=== PATIENT | female | born 1990 | race American Indian/Alaskan Native ===

== ENCOUNTER 2018-03-20 14:51 | Emergency (ER) | payer OTHER, MEDICAID, SELFPAY ==
[2018-03-20 15:13] VITALS: BP 117/68; PULSE 106; RESP 20; TEMP 37.1; O2SAT 98; BMI 24.4
[2018-03-20 16:04] LABS: Urine Amphetamines Negative (Negative); Urine Barbiturates Negative (Negative); Urine Benzodiazepines Positive (Negative); Urine Cocaine Negative (Negative); Urine MDMA Negative (Negative); Urine Methadone Negative (Negative); Urine Methamphetamines Negative (Negative); Urine Morphine/Opi cutoff 2000 Negative (Negative); Urine Oxycodone Negative (Negative); Urine Phencyclidine Negative (Negative); Urine Tetrahydrocannabinol Positive (Negative); Urine Tricyclic Antidepressant Negative (Negative)
[2018-03-20 16:07] LABS: Add Manual Diff / Slide Review NO; Basophils Percent Auto 0.2 % (0-2); Eosinophils Percent Auto 0.4 % (2-4); Hematocrit 42.3 % (36-46); Hemoglobin 14.6 g/dL (12.0-16.0); Lymphocytes Percent Auto 14.1 % (25-40); Mean Corpuscular HGB Conc 34.6 % (30-36); Mean Corpuscular Hemoglobin 32.6 PG (26-34); Mean Corpuscular Volume 94.4 fL (80-100); Monocytes Percent Auto 3.8 % (3-14); Neutrophils Absolute Auto 9000 /uL (3000-5900); Neutrophils Percent Auto 81.5 % (50-75); Platelet Count 364 X10^3/uL (150-400); Red Blood Cell Count 4.48 X10^6/uL (4.0-5.2); Red Cell Distribution Width 12.9 % (11.6-14.8)
--- NOTE | 2018-03-20 16:08 | PC.NURSE ---
Informed pt of policy to change out of clothes and into paper scrubs. All clothing removed except for underpants. Pt is very cooperative and willing to do what it takes to get help. Pt fiance at bedside and phone at bedside. Pt denies plan for suicide at this time. Agrees to remain safe while in our care. Spoke with both pt and significant other regarding plan of care.
[2018-03-20 16:17] LABS: Alanine Aminotransferase 33 IU/L (9-52); Albumin 4.5 g/dL (3.5-5.0); Albumin Globulin Ratio 1.6 (1.0-2.8); Alkaline Phosphatase 55 U/L (38-126); Aspartate Aminotransferase 44 IU/L (14-36); BUN Creatinine Ratio 18.3 (6-22); Bilirubin Total 0.3 mg/dL (0.2-1.3); Blood Urea Nitrogen 11 mg/dL (7-17); Calcium 8.6 mg/dL (8.4-10.2); Carbon Dioxide 28 mmol/L (22-32); Chloride 104 mmol/L (98-107); Estimated Glomerular Filt Rate > 60.0 mL/min (>60); Ethanol (ETOH) 287 mg/dL; Globulin 2.8 g/dL (1.7-4.1); Glucose 117 mg/dL (70-100); HEMOLYSIS < 15 (0-50); Potassium 3.9 mmol/L (3.4-5.1); Sodium 145 mmol/L (137-145); Total Protein 7.3 g/dL (6.3-8.2)
[2018-03-20 17:01] LABS: Thyroid Stimulating Hormone 0.69 uIU/mL (0.47-4.68)
[2018-03-20 17:27] LABS: RBC Urine None Seen (0-5/HPF)
[2018-03-20 17:33] LABS: Appearance Urine UA CLEAR; Bilirubin Urine UA NEGATIVE (NEGATIVE); Color Urine UA YELLOW; Glucose Urine UA NEGATIVE (Normal); Ketones Urine UA NEGATIVE (NEGATIVE); Leukocyte Esterase Urine UA 2+ (NEGATIVE); Nitrite Urine UA Negative (Negative); Occult Blood Urine UA NEGATIVE (Negative); Protein Urine UA NEGATIVE (Negative); Urobilinogen Urine UA 0.2 E.U./dL (0.2)
[2018-03-20 17:38] LABS: Bacteria Urine Occasional (0-1); Culture Indicated Urine Specimen Cultured; WBC Urine 5-10/HPF (0-5/HPF)
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
[2018-03-20 17:49] LABS: Acetaminophen < 10 ug/mL (10-30)
[2018-03-20 17:50] LABS: Salicylate < 1.0 mg/dL (<20)
[2018-03-20 17:53] LABS: Pregnancy Test Serum,Qual Negative (Negative)
[2018-03-20 20:04] VITALS: BP 103/69; PULSE 104; RESP 17; TEMP 37; O2SAT 97
== END 2018-03-20 20:24 | disposition home or self-care (01) ==
PROVIDERS: Emergency Medicine; Emergency Provider Emergency Medicine
DX: R45.851 Suicidal ideations (principal)
CPT/HCPCS: 36415; 80053; 80305; 80320; 80329; 81001; 82962; 84443; 84703; 85025; 87086; 87186; 99283; 99285; G0480

== ENCOUNTER 2018-03-28 19:00 | Emergency (ER) | payer OTHER, MEDICAID, SELFPAY ==
[2018-03-28 19:22] VITALS: BP 114/71; PULSE 109; RESP 18; TEMP 36.9; O2SAT 97; BMI 25.2
--- NOTE | 2018-03-28 20:56 | ED_ITS ---
HPI - Psych General Chief Complaint: Psychiatric Symptoms Stated Complaint: BEHAVIORAL EVAL Time Seen by Provider: 03/28/18 20:07 Source: patient Mode of arrival: ambulatory Limitations: other (intoxicated; silvia' gives some history.) History of Present Illness HPI Narrative: Patient was brought in by fiance and friend for alcohol intoxication, with hope of being sent to a detox facility. Patient states she is not feeling depressed or suicidal, but is tired of drinking. She states however, that she only wants to go to detox if she can go with her friend. The friend, silvia, and patient state that they have called a facility down to quell a, and has been told there are beds. MD complaint: other (Alcohol abuse and intoxication) Onset (ago): year(s) Duration: constant History of same: Yes Relieving factors: none Exacerbating factors: other (Anxiety, depression, PTSD) Context: recent alcohol abuse Associated psychiatric symptoms: depression (Patient has a history of depression , but is not suicidal.) Associated symptoms: denies other symptoms Treatments prior to arrival: none Related Data Home Medications Medication Instructions Recorded Confirmed cetirizine 10 mg PO DAILY PRN 03/20/18 03/20/18 clindamycin phosphate 1 applic TOPICAL DIRECTED 03/20/18 03/20/18 escitalopram oxalate 10 mg PO DAILY 03/20/18 03/20/18 halobetasol propionate 1 applic TOPICAL DIRECTED 03/20/18 03/20/18 hydroxyzine pamoate 25 mg PO QID 03/20/18 03/20/18 Allergies Allergy/AdvReac Type Severity Reaction Status Date / Time No Known Drug Allergies Allergy Verified 03/28/18 19:26 Review of Systems Review of Systems All systems reviewed & are unremarkable except as noted in HPI and below Constitutional Denies chills, Denies fever(s), Denies lethargy and Denies weakness Eyes Denies change in vision, Denies eye discharge, Denies irritation and Denies loss of vision Cardiovascular Denies chest pain, Denies irregular heart rhythm, Denies lightheadedness, Denies palpitations, Denies dyspnea, Denies dyspnea on exertion and Denies orthopnea Respiratory Denies cough, Denies dyspnea, Denies dyspnea on exertion and Denies wheezing Gastrointestinal Gastrointestinal: Denies abdominal pain, Denies change in bowel habits, Denies diarrhea, Denies nausea and Denies vomiting Genitourinary Denies hematuria, Denies flank pain, Denies urinary incontinence and Denies urinary urgency Musculoskeletal Denies back pain, Denies muscle weakness, Denies numbness and Denies tingling Integumentary/Breasts Denies pruritus, Denies erythema, Denies rash and Denies wounds Neurologic Denies confusion, Denies loss of vision, Denies numbness, Denies tingling and Denies weakness Psychiatric Denies anxiety, Denies confusion, Denies depression, Denies homicidal ideation and Denies suicidal ideation Endocrine Denies palpitations Hematologic/Lymphatic Denies easy bruising Allergic/Immunologic Denies wheezing [facility] Medical History Depression (Acute) Surgical History No pertinent past surgical history (Acute) Social History Smoking Status: Current every day smoker Exam Initial Vital Signs Initial Vital Signs: Vital Signs Temperature 98.4 F 03/28/18 19:22 Pulse Rate 109 H 03/28/18 19:22 Respiratory Rate 18 03/28/18 19:22 Blood Pressure 114/71 03/28/18 19:22 Pulse Oximetry 97 03/28/18 19:22 Const General: cooperative and well developed Nutritional Appearance: well nourished Orientation: alert, awake, oriented x3 and not confused Other: Patient smells mildly of alcohol and appears slightly intoxicated but is able to easily answer questions on her own. [facility] Head: normocephalic and atraumatic Ears: external ears normal Nose: external nose normal and No nasal discharge Face and sinus: no sinus tenderness and No dry mucous membranes Mouth: oral mucosae normal and moist mucous membranes Eyes General: appearance normal, both eyes and all related structures Eyelids: eyelids normal Conjunctivae: conjunctivae normal Sclera: sclerae normal Pupils: PERRL EOM: EOM intact bilaterally Neck Neck: normal visual inspection, trachea midline, No lymphadenopathy and No midline deformity Lymphatic: No lymphedema Chest Chest: normal inspection of the chest Resp Effort & Inspection: normal respiratory effort, able to speak in complete sentences, no respiratory distress and no use of accessory muscles Auscultation: clear to auscultation bilaterally, no rales, no rhonchi and no wheezes Cardio Rate: regular rate Rhythm: regular rhythm Heart Sounds: no click, no gallops, no murmurs and no rubs Pulses: normal peripheral pulses GI Inspection: non-distended Palpation: soft, no hepatosplenomegaly, No guarding, No pulsatile mass and No tender Auscultation: normal bowel sounds Back/Spine/Pelvis Back: No CVA tenderness Cervical Spine: cervical ROM normal and No pain with cervical ROM Thoracic/Lumbar Spine: thoracic and lumbar spine normal to inspection Skin General: no rashes or lesions noted, No jaundice and No petechiae Neuro General: alert, oriented x3, gait normal and no focal motor deficits Speech: speech normal Extrem General: full ROM, no clubbing, cyanosis or edema, no pedal edema and no calf tenderness Psych Appearance: well kempt Mental Status: mental status grossly normal Attitude: cooperative Thought Content: normal and suicidality Judgment: judgment good Course Hospital Course: Patient was minimally intoxicated in the emergency department clinically, and I did state to her that we would call the detox facility she is interested in, to find out if they do have beds, and what their clearance criteria are. We did call and the facility stated they do have beds that are available in the morning , but they would not be able to take the patient until probably mid morning. They did communicate need for clearance labs to us and we did initiate these. They also stated that the patient could not come with other friends to be admitted, and would need to be admitted by herself so they could work with her more effectively. Initially, the patient was agreeable to this plan but when she found out that she could not be admitted for detox with her friend, she stated she no longer wanted to go to detox. Staff did attempt to work with her on this, as did the friend and silvia, but ultimately, the patient chose to leave the emergency department. Orders Ordered: Discontinued Medications Lorazepam (Ativan) 1 mg PO NOW ONE Stop: 03/28/18 22:23 Nicotine (Nicoderm) 21 mg TOP NOW ONE Stop: 03/28/18 22:23 Ondansetron HCl (Zofran Odt) 4 mg PO NOW ONE Stop: 03/28/18 21:13 Last Admin: 03/28/18 21:30 Dose: 4 mg Vital Signs - 8 hr 03/28/18 19:22 Temperature 98.4 F Pulse Rate 109 H Respiratory Rate 18 Blood Pressure 114/71 Pulse Oximetry 97 MDM - Psych Medical Records Attestation: I reviewed the patient's medical records. Lab Data Attestation: I reviewed the patient's lab results. Result diagrams: 03/28/18 21:58 03/28/18 21:58 Lab Results 03/28/18 03/28/18 03/28/18 Range/Units 21:58 21:58 22:10 WBC 5.9 (4.5-11.0) X10^3/uL RBC 4.46 (4.0-5.2) X10^6/uL Hgb 14.4 (12.0-16.0) g/dL Hct 42.1 (36-46) % MCV 94.4 (80-100) fL MCH 32.4 (26-34) PG MCHC 34.3 (30-36) % RDW 12.7 (11.6-14.8) % Plt Count 265 (150-400) X10^3/uL Neut % (Auto) 55.5 (50-75) % Lymph % (Auto) 33.6 (25-40) % [place] % (Auto) 8.2 (3-14) % Eos % (Auto) 2.5 (2-4) % Baso % (Auto) 0.2 (0-2) % Neut # (Auto) 3300 (9327-9105) /uL Sodium 150 H (137-145) mmol/L Potassium 4.3 (3.4-5.1) mmol/L Chloride 108 H (98-107) mmol/L Carbon Dioxide 31 (22-32) mmol/L BUN 12 (7-17) mg/dL Creatinine 0.70 (0.52-1.04) mg/dL Estimated GFR > 60.0 (>60) mL/min BUN/Creatinine Ratio 17.1 (6-22) Glucose 97 (70-100) mg/dL Calcium 8.9 (8.4-10.2) mg/dL Total Bilirubin 0.2 (0.2-1.3) mg/dL AST 102 H (14-36) IU/L ALT 55 H (9-52) IU/L Alkaline Phosphatase 59 (38-126) U/L Total Protein 7.6 (6.3-8.2) g/dL Albumin 4.5 (3.5-5.0) g/dL Globulin 3.1 (1.7-4.1) g/dL Albumin/Globulin Ratio 1.5 (1.0-2.8) Urine Test Negative (Negative) MDM Narrative Medical decision making narrative: Patient's labs were unremarkable. I have discussed with fiancee and friend that patient must be willing to go to detox, and she cannot be forced by us to do so. At this point patient has chosen to leave the emergency department without completing treatment plan. Discharge Plan Departure Patient Disposition: Left Against Medical Advice Discharge Date/Time: 03/28/18 22:46 Interventions: ED Discharge Assessment Last Done: 03/28/18 22:39 Prescriptions: No Action clindamycin phosphate 1 % gel 1 applic Topical DIRECTED RF: 0 halobetasol propionate 0.05 % ointment 1 applic Topical DIRECTED RF: 0 hydroxyzine pamoate 25 mg capsule 25 mg PO QID RF: 0 escitalopram oxalate 10 mg tablet 10 mg PO DAILY RF: 0 cetirizine 10 mg Tablet 10 mg PO DAILY PRN (Reason: Allergy Symptoms) RF: 0 Stand Alone Forms: Against Medical Advice
[2018-03-28] MEDS: ONDANSETRON 4 MG ODT PO (21:30)
[2018-03-28 22:15] LABS: Add Manual Diff / Slide Review NO; Basophils Percent Auto 0.2 % (0-2); Eosinophils Percent Auto 2.5 % (2-4); Hematocrit 42.1 % (36-46); Hemoglobin 14.4 g/dL (12.0-16.0); Lymphocytes Percent Auto 33.6 % (25-40); Mean Corpuscular HGB Conc 34.3 % (30-36); Mean Corpuscular Hemoglobin 32.4 PG (26-34); Mean Corpuscular Volume 94.4 fL (80-100); Monocytes Percent Auto 8.2 % (3-14); Neutrophils Absolute Auto 3300 /uL (3000-5900); Neutrophils Percent Auto 55.5 % (50-75); Platelet Count 265 X10^3/uL (150-400); Red Blood Cell Count 4.46 X10^6/uL (4.0-5.2); Red Cell Distribution Width 12.7 % (11.6-14.8); White Blood Cell Count 5.9 X10^3/uL (4.5-11.0)
[2018-03-28 22:19] LABS: Alanine Aminotransferase 55 IU/L (9-52); Albumin 4.5 g/dL (3.5-5.0); Albumin Globulin Ratio 1.5 (1.0-2.8); Alkaline Phosphatase 59 U/L (38-126); Aspartate Aminotransferase 102 IU/L (14-36); BUN Creatinine Ratio 17.1 (6-22); Bilirubin Total 0.2 mg/dL (0.2-1.3); Blood Urea Nitrogen 12 mg/dL (7-17); Calcium 8.9 mg/dL (8.4-10.2); Carbon Dioxide 31 mmol/L (22-32); Chloride 108 mmol/L (98-107); Estimated Glomerular Filt Rate > 60.0 mL/min (>60); Globulin 3.1 g/dL (1.7-4.1); Glucose 97 mg/dL (70-100); HEMOLYSIS < 15 (0-50); Potassium 4.3 mmol/L (3.4-5.1); Sodium 150 mmol/L (137-145); Total Protein 7.6 g/dL (6.3-8.2)
[2018-03-28 22:31] LABS: Pregnancy Test Urine Negative (Negative)
== END 2018-03-28 22:46 | disposition left against medical advice (07) ==
PROVIDERS: Emergency Provider Emergency Medicine
DX: F99 Mental disorder, not otherwise specified (principal)
CPT/HCPCS: 36415; 80053; 81025; 82075; 85025; 99282; 99283

== ENCOUNTER 2020-03-07 14:18 | Outpatient (RCR) | payer OTHER, MEDICAID, SELFPAY ==
--- NOTE | 2020-03-07 16:15 | PT.OIE ---
Current Diagnoses Stiffness of left hip, not elsewhere classified (03/07/20) Low back pain (03/07/20) Muscle weakness (generalized) (03/07/20) Stress incontinence (female) (male) (03/07/20) Past Medical History (Last Reviewed 04/02/18 @ 09:16 by Shilpa Rose MD) Depression (Inactive) Past Surgical History (Last Updated 04/02/18 @ 09:16 by Shilpa Rose MD) No pertinent past surgical history (Acute) Visit Care Team Role Provider Type ESTER Lopez Attending Provider Non-Staff Primary Care Provider Referring Provider Specialty: Obstetrics Address: [address] [place] [address], [place], [address] Email: Physical Therapy Initial Evaluation PT-OP-A Visit Information Start: 03/06/20 23:18 Freq: Status: Active Protocol: Document 03/07/20 14:21 LRN (Rec: 03/07/20 16:02 LRN [id number]) Out-Patient Physical Therapy Visit Information Visit Information Visit Type Initial Evaluation Visit Start Time 14:22 Visit Stop Time 15:10 Total Visit Minutes 48 Visit Number 1 Evaluation Information Evaluation Date 03/07/20 Precautions Precautions IUD, suffers from anxiety, PT-OP-B Current Condition Start: 03/06/20 23:18 Freq: Status: Active Protocol: Document 03/07/20 14:21 LRN (Rec: 03/07/20 16:02 LRN [id number]) Current Condition History of Current Condition Onset Date 3 yrs Current Complaints Urinary leakage with big cough , sneeze, sometimes laugh History of Current Condition Pt attends therapy with significant other for emotional support. Pt reports in the past 3 yrs she has had a little incontinence that has continued to worsen. States urinary incontinence with cough sneeze or laughing. Leaks couple times a day, changes underwear a lot. She states she was referred to therapy by ESTER Lopez after seeing her for he IUD placement, not her primary care physician Dr. MIKE Mccoy. She states she has had an IUD in place since age 18 (11 yrs) with one ~ every 5 yrs. She recently had a 3rd IUD replaced a couple months ago. Prior to her new IUD she had some cramping in her lower abdomen, but denies any cramping after the initial placement. Treatment Goals Patient/Caregiver Goals Pt goal is to strengthen the PF. Prior Functional Status Baseline Function- ADL's Independent Baseline Function- Mobility Independent Current Functional Impairments (Reported) Functional Limitations- ADL's Incontinence (a little) with cough, sneeze, laughing. 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 Jerry, pushes, pulls, lifts . 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 PT-OP-C Subjective Start: 03/06/20 23:18 Freq: Status: Active Protocol: Document 03/07/20 14:21 LRN (Rec: 03/07/20 16:02 LRN [id number]) OP-PT Subjective Patient Comments Patient Comments Per intake form, pt reports: 2-3 leaks per day, with severity of wetting underwear. Leakage in any position. Urinates 12#/day, no nighttime urination, 1 bladder infection in past year, sensation of having to urinate after going to the toilet, and sometimes slow or hesitant urinary stream. Patient Questionnaires Pelvic Pain and Urgency/Frequency Patient Symptom Scale Pelvic Pain Score 10 OP-PT Pain Assessment Pain Assessment Grid Paper Pain Assessment Grid Completed Yes Location R Anterior hip Pain Location Details R Anterior Hip, noted but not mentioned during hx discussion Intensity 9 Scale Used Numeric (0 - 10) L Posterior shoulder Pain Location Details L Posterior shoulder Intensity 4 Scale Used Numeric (0 - 10) L Low back Pain Location Details L Low Back noted but not mentioned during hx discussion Intensity 4 Scale Used Numeric (0 - 10) PT-OP-I Pelvic Floor Start: 03/06/20 23:18 Freq: Status: Active Protocol: Document 03/07/20 14:21 LRN (Rec: 03/07/20 16:02 LRN [id number]) Pelvic Floor Assessment Urine Urinary Symptoms Urge Sensation,Dribbling After Urination Other Urinary Symptoms Slow stream, urge without having to urinate. Leakage Size Small Leakage Cause Cough,Sneeze Leaks Per Day 2 Pelvic Clock Pelvic Clock 3-6 Tenderness Perineal Descent Resting Absent Bearing Present Contraction Ability Voluntary Contraction Moderate Voluntary Relaxation Weak Manual Muscle Testing Left 3 Manual Muscle Testing Right 1 Manual Muscle Testing Anterior 3 Manual Muscle Testing Posterior 3 Comments Pelvic Floor Comments Mild Perineal Descent with bearing down (cough). Pt Long Hold PF ms strength was 3/5 in all areas. Pt Quick Flick PF ms strength was 3/5 except Right was 1/5. PT-OP-J Posture/Palpation/Skin Start: 03/06/20 23:18 Freq: Status: Active Protocol: Document 03/07/20 14:21 LRN (Rec: 03/07/20 16:09 LRN [id number]) Posture Evaluation Comments Posture Comments Standing: Flattened Upper back, Increased Lordosis, Anterior Tilt of pelvis. PT-OP-K Range of Motion Start: 03/06/20 23:18 Freq: Status: Active Protocol: Document 03/07/20 14:21 LRN (Rec: 03/07/20 16:02 LRN [id number]) Lumbar Spine Range of Motion Lumbar Spine Active Degrees Testing Position Standing Flexion 100 Extension 35 Lateral Flexion Left 20 Lateral Flexion Right 12 Hip Goniometric Range of Motion Hip Right Passive Testing Position Supine Straight Leg Raise 95 Abduction 45 Internal Rotation 65 External Rotation 60 Left Passive Testing Position Supine Straight Leg Raise 90 Abduction 40 Internal Rotation 60 External Rotation 65 PT-OP-M Strength Start: 03/06/20 23:18 Freq: Status: Active Protocol: Document 03/07/20 14:21 LRN (Rec: 03/07/20 16:02 LRN [id number]) Hip Strength Hip Manual Muscle Testing Right Reason Not Measured WFL Left Reason Not Measured WFL PT-OP-Q Treatments Start: 03/06/20 23:18 Freq: Status: Active Protocol: Document 03/07/20 14:21 LRN (Rec: 03/07/20 16:02 LRN [id number]) Self-Care/Home Management Treatment Education Patient Education Home Exercise Program Other Education Discussed results of Evaluation and goals. Educated and issued pt handouts for filling out of Bladder Diary with I/S to complete 7 days to bring back at next visit. Activities Self-Care/Home Management Activities Briefly discussed Kegel ex's and issued handout for instructions of Kegel with exercises. PT-OP-T Assessment and Plan Start: 03/06/20 23:18 Freq: Status: Active Protocol: Document 03/07/20 14:21 LRN (Rec: 03/07/20 16:02 LRN [id number]) Physical Therapy Assessment Rehab Potential Rehabilitation Potential Excellent Evaluation Complexity Number of Personal Factors/Comorbidities 1-2 Number of Body Systems Impaired 3 Clinical Presentation at Evaluation Evolving Impairments Impairments Pain,ROM,Strength Other Impairments Urinary Incontinence Goals Three Impairment Urinary incontinence with a strong cough, sneeze or with laughing Short Term Goal (STG) Improve PF strength per Long Hold to 10 sec's prior to fatigue and Quick Flicks of R side (PF 9 O'Clock) to 3/5 strength (Initial: Long Hold 8 secs, Quick Flick at 9 O' Clock is 2/5). STG Duration 04/04/20 Online Advertising Analyst Goal (LTG) Pt will be able to maintain continence in the presence of a strong cough, sneeze and with laughing. LTG Duration 05/06/20 Two Impairment Decreased L hip mobility (PSLR 90 L, 95 R; AB 40 L, 45 R; ER 65 george) Short Term Goal (STG) Pt will be independent with a HEP of hip stretches for hamstrings, hip AB's and ER's. STG Duration 04/04/20 Online Advertising Analyst Goal (LTG) Pt will demonstrate improved LLE PSLR, hip AB and bilateral hip ER mobility. LTG Duration 05/06/20 One Impairment Pt lacks self care HEP. Online Advertising Analyst Goal (LTG) Pt will be independent in a self care HEP for PF strengthening. LTG Duration 05/06/20 Assessment Summary Assessment Pt presents with urinary stress incontinence due to mild weakness at PF 9 O'Clock with Quick Flicks and decreased Long Hold of 8-9 sec 's. She also has discomfort at PF 3 & 6 O'Clock positions . Claire has a good strong PF contraction with a strong posterior lift felt, but lacks a pulling up contraction, probably due to her assisting too much with the abdominal muscles. The pt will benefit from skilled physical therapy for pt education in proper PF contraction and awareness training, proper breathwork with contractions and functional activities, a program of quick flicks and long hold exercising and core strengthening. Physical Therapy Plan Frequency and Duration Frequency of Treatment 1x/Week Plan of Care Start Date 03/07/20 Plan of Care End Date 05/06/20 Therapeutic Interventions Therapeutic Interventions Home Exercise Program,Manual Therapy,Neuromuscular Re- education,Patient/Caregiver Education,Self-Care/Home Management,Soft Tissue Mobilization,Therapeutic Exercises Modalities Biofeedback Next Visit Focus/Plan Next Note Type Treatment Note Next Visit Plan Review and discuss bladder diary and kegel ex. Train pt in proper deep breathing and educate pt in incorporating proper deep breathing with PF contraction with functional/ daily activities (transfers, lifting for job, pushing, pulling). Stretch to PF ( Happy Baby Pose), Hip stretches: ER, L AD & Hamstring & trunk R SB stretch . Core strengthening, STM for TrP, tender points, short muscles, and progress Roll in/ out PF/core strengthening.
--- NOTE | 2020-03-11 13:57 | PT-OP ANOTE ---
PT called pt and left message. Ed pt to return call to clinic to communicate her feelings about con't PT. Left clinic phone number. Communicated that if do not hear back from pt by Tuesday, will d/c PT.
--- NOTE | 2020-03-21 13:31 | PT-OP ANOTE ---
Same day cx, not able to leave work on time.
--- NOTE | 2020-04-18 14:35 | PT-OP ANOTE ---
DNS. Message was left per phone to pt that she missed an appt. Reviewed cancellation policy and reminded pt of next appt.
--- NOTE | 2020-08-04 17:25 | PT.OPDS ---
Current Diagnoses Stiffness of left hip, not elsewhere classified (03/07/20) Low back pain (03/07/20) Muscle weakness (generalized) (03/07/20) Stress incontinence (female) (male) (03/07/20) Visit Care Team Role Provider Type ESTER Lopez Attending Provider Non-Staff Primary Care Provider Referring Provider Specialty: Obstetrics Address: [address] [place] [address], [place], [address] Email: Visit Number Visit Number 1 Discharge Summary PT-OP-B Current Condition Start: 03/06/20 23:18 Freq: Status: Active Protocol: Document 03/07/20 14:21 LRN (Rec: 03/07/20 16:02 LRN [id number]) Current Condition History of Current Condition Onset Date 3 yrs Current Complaints Urinary leakage with big cough , sneeze, sometimes laugh History of Current Condition Pt attends therapy with significant other for emotional support. Pt reports in the past 3 yrs she has had a little incontinence that has continued to worsen. States urinary incontinence with cough sneeze or laughing. Leaks couple times a day, changes underwear a lot. She states she was referred to therapy by ESTER Lopez after seeing her for he IUD placement, not her primary care physician Dr. MIKE Mccoy. She states she has had an IUD in place since age 18 (11 yrs) with one ~ every 5 yrs. She recently had a 3rd IUD replaced a couple months ago. Prior to her new IUD she had some cramping in her lower abdomen, but denies any cramping after the initial placement. Treatment Goals Patient/Caregiver Goals Pt goal is to strengthen the PF. Prior Functional Status Baseline Function- ADL's Independent Baseline Function- Mobility Independent Current Functional Impairments (Reported) Functional Limitations- ADL's Incontinence (a little) with cough, sneeze, laughing. 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 Jerry, pushes, pulls, lifts . 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 Leakage in any position. Urinates 12#/day, no nighttime urination, 1 bladder infection in past year, sensation of having to urinate after going to the toilet, and sometimes slow or hesitant urinary stream. Patient Questionnaires Pelvic Pain and Urgency/Frequency Patient Symptom Scale Pelvic Pain Score 10 OP-PT Pain Assessment Pain Assessment Grid Paper Pain Assessment Grid Completed Yes Location R Anterior hip Pain Location Details R Anterior Hip, noted but not mentioned during hx discussion Intensity 9 Scale Used Numeric (0 - 10) L Posterior shoulder Pain Location Details L Posterior shoulder Intensity 4 Scale Used Numeric (0 - 10) L Low back Pain Location Details L Low Back noted but not mentioned during hx discussion Intensity 4 Scale Used Numeric (0 - 10) PT-OP-I Pelvic Floor Start: 03/06/20 23:18 Freq: Status: Active Protocol: Document 03/07/20 14:21 LRN (Rec: 03/07/20 16:02 [facility] [id number]) Pelvic Floor Assessment Urine Urinary Symptoms Urge Sensation,Dribbling After Urination Other Urinary Symptoms Slow stream, urge without having to urinate. Leakage Size Small Leakage Cause Cough,Sneeze Leaks Per Day 2 Pelvic Clock Pelvic Clock 3-6 Tenderness Perineal Descent Resting Absent Bearing Present Contraction Ability Voluntary Contraction Moderate Voluntary Relaxation Weak Manual Muscle Testing Left 3 Manual Muscle Testing Right 1 Manual Muscle Testing Anterior 3 Manual Muscle Testing Posterior 3 Comments Pelvic Floor Comments Mild Perineal Descent with bearing down (cough). Pt Long Hold PF ms strength was 3/5 in all areas. Pt Quick Flick PF ms strength was 3/5 except Right was 1/5. PT-OP-J Posture/Palpation/Skin Start: 03/06/20 23:18 Freq: Status: Active Protocol: Document 03/07/20 14:21 LRN (Rec: 03/07/20 16:09 N [id number]) Posture Evaluation Comments Posture Comments Standing: Flattened Upper back, Increased Lordosis, Anterior Tilt of pelvis. PT-OP-K Range of Motion Start: 08/06/20 23:18 Freq: Status: Active Protocol: Document 03/07/20 14:21 LRN (Rec: 03/07/20 16:02 LRN [id number]) Lumbar Spine Range of Motion Lumbar Spine Active Degrees Testing Position Standing Flexion 100 Extension 35 Lateral Flexion Left 20 Lateral Flexion Right 12 Hip Goniometric Range of Motion Hip Right Passive Testing Position Supine Straight Leg Raise 95 Abduction 45 Internal Rotation 65 External Rotation 60 Left Passive Testing Position Supine Straight Leg Raise 90 Abduction 40 Internal Rotation 60 External Rotation 65 PT-OP-M Strength Start: 03/06/20 23:18 Freq: Status: Active Protocol: Document 03/07/20 14:21 LRN (Rec: 03/07/20 16:02 LRN [id number]) Hip Strength Hip Manual Muscle Testing Right Reason Not Measured WFL Left Reason Not Measured WFL PT-OP-T Assessment and Plan Start: 03/06/20 23:18 Freq: Status: Active Protocol: Document 08/04/20 17:18 LRN (Rec: 08/04/20 17:25 LRN [id number]) Physical Therapy Assessment Goals Three Impairment Urinary incontinence with a strong cough, sneeze or with laughing Short Term Goal (STG) Improve PF strength per Long Hold to 10 sec's prior to fatigue and Quick Flicks of R side (PF 9 O'Clock) to 3/5 strength (Initial: Long Hold 8 secs, Quick Flick at 9 O' Clock is 2/5). STG Duration 04/04/20 (08/04/20: GOAL NOT MET , due to lack of attendance) Alf Goal (LTG) Pt will be able to maintain continence in the presence of a strong cough, sneeze and with laughing. LTG Duration 05/06/20 (08/04/20: GOAL NOT MET, due to lack of attendance ) Two Impairment Decreased L hip mobility (PSLR 90 L, 95 R; AB 40 L, 45 R; ER 65 george) Short Term Goal (STG) Pt will be independent with a HEP of hip stretches for hamstrings, hip AB's and ER's. STG Duration 04/04/20 (08/04/20: GOAL NOT MET , due to lack of attendance) Medication Coordinator Goal (LTG) Pt will demonstrate improved LLE PSLR, hip AB and bilateral hip ER mobility. LTG Duration 05/06/20 (08/04/20: GOAL NOT MET, due to lack of attendance ) One Impairment Pt lacks self care HEP. Medication Coordinator Goal (LTG) Pt will be independent in a self care HEP for PF strengthening. LTG Duration 05/06/20 (08/04/20: GOAL NOT MET, due to lack of attendance ) Assessment Summary Assessment Pt was only seen for an initial evaluation 03/07/20 and on 04/24/20 called to report she wasn't feeling well and requested cancellation of her remaining appointments, indicating she would call to reschedule once she felt better. The pt hasn't called back. Message was left informing pt of DC with instructions to seek new referral if therapy is needed. Her plan of care has ; therefore the pt will need a new referral to return to physical therapy. The pt is being discharged due to lack of attendance. Physical Therapy Plan Discharge Physical Therapy Discharge Reasons No Longer Attending PT Discharge Comments Pt will need a new referral to return to physical therapy. Thank you for your referral.
== END 2020-08-15 09:56 | disposition home or self-care (01) ==
LOC: PHYS 14:18
PROVIDERS: PCP Advanced Practice Midwife; Referring Provider Advanced Practice Midwife; Visit Provider Advanced Practice Midwife
DX: N39.3 Stress incontinence (female) (male) (principal); M62.81 Muscle weakness (generalized); M25.652 Stiffness of left hip, not elsewhere classified; M54.5 Low back pain
CPT/HCPCS: 97162

== ENCOUNTER 2020-09-07 03:59 | Emergency (ER) | payer OTHER, MEDICAID, SELFPAY ==
--- NOTE | 2020-09-07 04:03 | ED.HEATRA ---
HPI - Head Injury General Chief complaint: Head Injury Stated complaint: Head injury, urinating blood Time Seen by Provider: 09/07/20 04:03 Source: patient Mode of arrival: Ambulatory Limitations: no limitations History of Present Illness HPI Narrative: 30-year-old female smoker presents with a friend and the chief complaint of a fall yesterday with a head injury. She has a terrible historian and has very little ability to contribute to the event. Her friend states that she was on the roof of her porch (about 8 feet?) when she jumped off in landed in grass, or may be some rocks. It is unclear what part of her body hit the ground but she states she did lose consciousness and is unclear how long. She states that her nose hurts, is swollen and blood for a long time. She also has ?but pain ?. She has some chest pain and also states that she has had blood in her urine. She admits to heavy consumption of alcohol tonight including up to 1/5 of vodka. She denies the use of street drugs. She states her fall was Tuesday. She presents initially to the bathroom and ambulates with an unsteady gait to her room. She is activated as a modified trauma and put in a C collar. Complaint: head injury, head pain and fall Onset (ago): day(s) Mechanism of Injury: fall Place: home Loss of Consciousness: yes Location of injury: frontal Severity: moderate Quality: aching Radiation: none Context: recent alcohol use Associated symptoms: confusion, amnesia and nausea Related Data Home Medications Medication Instructions Recorded Confirmed cetirizine 10 mg PO DAILY PRN 03/20/18 03/20/18 clindamycin phosphate 1 applic TOPICAL DIRECTED 03/20/18 03/20/18 escitalopram oxalate 10 mg PO DAILY 03/20/18 03/20/18 halobetasol propionate 1 applic TOPICAL DIRECTED 03/20/18 03/20/18 hydroxyzine pamoate 25 mg PO QID 03/20/18 03/20/18 Allergies Allergy/AdvReac Type Severity Reaction Status Date / Time No Known Drug Allergies Allergy Verified 03/28/18 19:26 Review of Systems Review of Systems Narrative: poor historian Constitutional Constitutional: Denies chills, Denies fatigue, Denies fever(s), Denies frequent falls, Reports headache(s), Denies lethargy and Denies weakness Eyes Eyes: Denies change in vision, Denies eye discharge, Denies irritation and Denies loss of vision ENT Ears, Nose, Mouth, and Throat: Denies change in voice, Reports dizziness, Reports facial pain, Reports headache(s), Reports nasal trauma, Denies neck pain, Reports nose pain, Denies sore throat and Denies throat swelling Cardiovascular Cardiovascular: Denies chest pain, Denies irregular heart rhythm, Denies lightheadedness, Denies palpitations, Denies dyspnea, Denies dyspnea on exertion and Denies orthopnea Respiratory Respiratory: Denies cough, Denies dyspnea, Denies dyspnea on exertion and Denies wheezing Gastrointestinal Gastrointestinal: Denies abdominal pain, Denies change in bowel habits, Denies diarrhea, Denies nausea and Denies vomiting Genitourinary Genitourinary: Reports hematuria Genitourinary: Reports hematuria Musculoskeletal Musculoskeletal: Denies neck pain and Denies numbness Integumentary/Breasts Skin/Breast: Denies pruritus, Denies erythema, Denies rash and Denies wounds Neurologic Neurologic: Denies behavioral changes, Reports confusion, Reports dizziness, Denies frequent falls, Reports headache(s), Reports lack of coordination, Denies loss of vision, Denies numbness and Denies weakness Psychiatric Psychiatric: Denies anxiety, Denies behavioral changes, Reports confusion, Denies depression, Denies homicidal ideation and Denies suicidal ideation Endocrine Endocrine: Denies fatigue, Denies flushing and Denies palpitations Hematologic/Lymphatic Hematologic/Lymphatic: Denies easy bruising Allergic/Immunologic Allergic/Immunologic: Denies urticaria, Denies throat swelling and Denies wheezing Patient History Medical History Depression Surgical History No pertinent past surgical history Social History Smoking Status: Current every day smoker Smoking Status: Current every day smoker alcohol intake frequency: 3 or more drinks per day Substance Use Type: marijuana Exam Narrative Exam Narrative: GENERAL: [30] year old patient appears stated age. Well-nourished, well-developed patient, in moderate distress. She is slurring her words and confused. She is guarding her airway without difficulty HEAD: No obvious depressed skull fracture, laceration or abrasion. Tenderness to palpation of left temporal region EYES: Pupils equal round and reactive no hyphema.. Extraocular motions intact. No scleral icterus. No injection or drainage. ENT: Nasal bone tenderness to palpation, swelling, no nasal septal hematoma, dried clots in bilateral nares.. Throat without erythema, tonsillar hypertrophy or exudate. Airway patent. NECK: Trachea midline. Non tender CARDIOVASCULAR: Regular rate and rhythm without murmurs, gallops, or rubs. RESPIRATORY: Clear to auscultation. Breath sounds equal bilaterally. No wheezes, rales, or rhonchi. GASTROINTESTINAL: Abdomen soft, non-tender, nondistended. EXTREMITIES: No edema or joint tenderness. BACK: Nontender without deformity or crepitance. No flank tenderness. NEURO: Alert. Oriented to person and location SKIN: No rash or erythema of visible areas Initial Vital Signs Initial Vital Signs: Vital Signs Temperature 98.3 F 09/07/20 04:19 Pulse Rate 102 H 09/07/20 04:19 Respiratory Rate 18 09/07/20 04:19 Blood Pressure 141/88 H 09/07/20 04:19 Pulse Oximetry 95 09/07/20 04:19 Scores GCS Matt coma scale eye opening: Spontaneous [place] coma scale verbal response: Confused [place] coma scale motor response: Obey commands Matt coma scale total score: 14 Nexus Score for C-Spine Focal Neurologic deficit present: No Midline spinal tenderness present: Yes Altered level of conciousness present: Yes Intoxication present: Yes Distracting Injury Present: No Nexus Criteria for C-spine: 3 Course Course Course Narrative: 0526 -patient speaking clearly without slurring her words. We have received all of her images and labs and she wants to go home. She is able to walk a straight line with steady gait. She has a ride home with her friend. Return precautions given, questions answered to their apparent satisfaction Orders Ordered: ED Orders 09/07/20 04:09 Urine Culture Stat 09/07/20 04:14 CT facial bones wo con Stat Ethanol (ETOH) Stat Urine Drug Screen, Rapid Stat 09/07/20 04:15 CT cervical spine wo con Stat CT chest abd pel w con Stat CT head/brain wo con Stat Complete Blood Count AUTO DIFF Stat Comprehensive Metabolic Panel Stat Lipase Stat 09/07/20 04:26 Urine Microscopic Stat Vital Signs Vital signs: Vital Signs - 8 hr 09/07/20 04:19 Temperature 98.3 F Pulse Rate 102 H Respiratory Rate 18 Blood Pressure 141/88 H Pulse Oximetry 95 MDM - Head Injury Lab Data Result diagrams: 09/07/20 04:20 09/07/20 04:20 Labs: Lab Results 09/07/20 09/07/20 09/07/20 Range/Units 04:09 04:09 04:20 WBC (4.5-11.0) X10^3/uL RBC (4.0-5.2) X10^6/uL Hgb (12.0-16.0) g/dL Hct (36-46) % MCV (80-100) fL MCH (26-34) PG MCHC (30-36) % RDW (11.6-14.8) % Plt Count (150-400) X10^3/uL Neut % (Auto) (50-75) % Lymph % (Auto) (25-40) % [place] % (Auto) (3-14) % Eos % (Auto) (2-4) % Baso % (Auto) (0-2) % Neut # (Auto) (8614-9144) /uL Lymph # (Auto) (9904-2944) /uL [place] # (Auto) (0-900) /uL Eos # (Auto) (0-450) /uL Baso # (Auto) (0-100) /uL Sodium (137-145) mmol/L Potassium (3.4-5.1) mmol/L Chloride (98-107) mmol/L Carbon Dioxide (22-32) mmol/L BUN (7-17) mg/dL Creatinine (0.52-1.04) mg/dL Estimated GFR (>60) mL/min BUN/Creatinine Ratio (6-22) Glucose (70-100) mg/dL Calcium (8.4-10.2) mg/dL Total Bilirubin (0.2-1.3) mg/dL AST (14-36) IU/L ALT (<35) IU/L Alkaline Phosphatase (38-126) U/L Total Protein (6.3-8.2) g/dL Albumin (3.5-5.0) g/dL Globulin (1.7-4.1) g/dL Albumin/Globulin Ratio (1.0-2.8) Lipase (23-300) U/L Urine RBC 30-100/hpf H (0-5/HPF) Urine WBC 1-5/hpf (0-5/HPF) Ur Squamous Epith Cells 0-1 /hpf (0-5/HPF) Urine Bacteria Many (>30) H (None) Ur Culture Indicated? Specimen cultured U Opiates 300ng/mL cut Negative (Negative) Ur Oxycodone Screen Negative (Negative) Urine Methadone Screen Negative (Negative) Ur Barbiturates Screen Negative (Negative) U Tricyclic Antidepress Negative (Negative) Ur Phencyclidine Scrn Negative (Negative) Ur Amphetamines Screen Negative (Negative) U Methamphetamines Scrn Negative (Negative) Ur MDMA Scrn (Ecstasy) Negative (Negative) U Benzodiazepines Scrn Negative (Negative) Urine Cocaine Screen Negative (Negative) U Marijuana (THC) Screen Negative (Negative) Ethyl Alcohol 493 H* ( - 10) mg/dL 09/07/20 09/07/20 Range/Units 04:20 04:20 WBC 12.7 H (4.5-11.0) X10^3/uL RBC 4.63 (4.0-5.2) X10^6/uL Hgb 14.9 (12.0-16.0) g/dL Hct 44.4 (36-46) % MCV 95.9 (80-100) fL MCH 32.1 (26-34) PG MCHC 33.5 (30-36) % RDW 14.1 (11.6-14.8) % Plt Count 523 H (150-400) X10^3/uL Neut % (Auto) 68.9 (50-75) % Lymph % (Auto) 22.2 L (25-40) % [place] % (Auto) 8.2 (3-14) % Eos % (Auto) 0.4 L (2-4) % Baso % (Auto) 0.3 (0-2) % Neut # (Auto) 8800 H (8014-3786) /uL Lymph # (Auto) 2800 (2023-8190) /uL [place] # (Auto) 1000 H (0-900) /uL Eos # (Auto) 0 (0-450) /uL Baso # (Auto) 0 (0-100) /uL Sodium 143 (137-145) mmol/L Potassium 4.2 (3.4-5.1) mmol/L Chloride 105 (98-107) mmol/L Carbon Dioxide 24 (22-32) mmol/L BUN 11 (7-17) mg/dL Creatinine 0.72 (0.52-1.04) mg/dL Estimated GFR > 60.0 (>60) mL/min BUN/Creatinine Ratio 15.3 (6-22) Glucose 116 H (70-100) mg/dL Calcium 8.7 (8.4-10.2) mg/dL Total Bilirubin 0.3 (0.2-1.3) mg/dL AST 246 H (14-36) IU/L ALT 114 H (<35) IU/L Alkaline Phosphatase 58 (38-126) U/L Total Protein 8.2 (6.3-8.2) g/dL Albumin 4.7 (3.5-5.0) g/dL Globulin 3.5 (1.7-4.1) g/dL Albumin/Globulin Ratio 1.3 (1.0-2.8) Lipase 339 H (23-300) U/L Urine RBC (0-5/HPF) Urine WBC (0-5/HPF) Ur Squamous Epith Cells (0-5/HPF) Urine Bacteria (None) Ur Culture Indicated? U Opiates 300ng/mL cut (Negative) Ur Oxycodone Screen (Negative) Urine Methadone Screen (Negative) Ur Barbiturates Screen (Negative) U Tricyclic Antidepress (Negative) Ur Phencyclidine Scrn (Negative) Ur Amphetamines Screen (Negative) U Methamphetamines Scrn (Negative) Ur MDMA Scrn (Ecstasy) (Negative) U Benzodiazepines Scrn (Negative) Urine Cocaine Screen (Negative) U Marijuana (THC) Screen (Negative) Ethyl Alcohol ( - 10) mg/dL Point of Care Testing Test Results Negative Urine Dip Bedside Urine Glucose Negative Bedside Urine Bilirubin - Negative Bedside Urine Ketone - Negative Urine Specific [place] 1.015 Bedside Urine Occult Blood +++ Bedside Urine pH 6.0 Bedside Urine Protein ++ 100 Bedside Urine Urobilinogen - Negative Bedside Urine Nitrite + Positive Bedside Urine Leukocytes - Negative Esterase Imaging Data CT scan - head: Radiologist's Impression: No acute intracranial hemorrhage CT - cervical spine: Radiologist's Impression: No cervical spine fracture CT - Facial Bones: Radiologist's Impression: No fracture or acute findings Discharge Plan Departure Patient Disposition: Home Clinical Impression: Closed head injury Qualifiers: Encounter type: initial encounter Qualified Code(s): S09.90XA - Unspecified injury of head, initial encounter Alcohol intoxication Qualifiers: Complication of substance-induced condition: uncomplicated Qualified Code(s): F10.920 - Alcohol use, unspecified with intoxication, uncomplicated Contusion of nose Qualifiers: Encounter type: initial encounter Qualified Code(s): S00.33XA - Contusion of nose, initial encounter Hematuria Qualifiers: Hematuria type: unspecified type Qualified Code(s): R31.9 - Hematuria, unspecified Instructions: Concussion, DI for Hematuria Activity Restrictions/Additional Instructions: *You have been diagnosed with [alcohol intoxication, nasal contusion, hematuria. Otherwise your blood work and CT scans are very reassuring. He of no evidence of fractures, demonstrate kidneys and are very marla *What to do: *Take medications as directed *Follow up with your primary care provider in 2-3 days, call for an appointment. Let them know you were seen in the Emergency Department and that we ask that you be seen in follow up *Return to ER if you should have any new, worsening or concerning symptoms, such as [change in mental status, persistent vomiting, or other bothersome symptoms Prescriptions: No Action clindamycin phosphate 1 % gel 1 applic Topical DIRECTED RF: 0 halobetasol propionate 0.05 % ointment 1 applic Topical DIRECTED RF: 0 hydroxyzine pamoate 25 mg capsule 25 mg PO QID RF: 0 escitalopram oxalate 10 mg tablet 10 mg PO DAILY RF: 0 cetirizine 10 mg Tablet 10 mg PO DAILY PRN (Reason: Allergy Symptoms) RF: 0 Referrals: Gita Law ARNP [Primary Care Provider] -
--- NOTE | 2020-09-07 04:14 | DI.CT.S_ITS ---
PROCEDURE: CT FACIAL BONES WO CON INDICATIONS: trauma, head injury, face pain, swelling TECHNIQUE: Noncontrast 2.5 mm thick axial images acquired from the mandible through the frontal sinuses, with coronal and sagittal reformatting. For radiation dose reduction, the following was used: automated exposure control, adjustment of mA and/or kV according to patient size. COMPARISON: None. FINDINGS: Image quality: Evaluation of the anterior maxilla and mandible is somewhat degraded given streak artifact from adjacent piercings. Bones and teeth: Orbital larsen are intact. Sinus larsen show no fracture or deformity. Nasal bones and septum are intact. Visualized portions of the mandible demonstrate no fractures or subluxation. Zygomatic arches are intact. Pterygoid plates are intact. Visualized portions of the skull base and auditory canals are intact. Sinuses: Paranasal sinuses are aerated, without fluid levels, mucosal thickening, or mucoceles. Mastoid air cells are aerated. Soft tissues: No edema, masses, or fluid collections. No enlarged lymph nodes. No soft tissue lacerations or debris. Vascular: Visualized vascular structures appear normal in the absence of contrast. Bony vascular foramina and canals are intact. IMPRESSION: No acute osseous abnormality. Dictated by: Timbo Farley D.O. on 09/07/2020 at 8:10 Approved by: Timbo Farley D.O. on 09/07/2020 at 8:13
--- NOTE | 2020-09-07 04:15 | DI.CT.S_ITS ---
PROCEDURE: CT CERVICAL SPINE WO CON INDICATIONS: fall with head injury TECHNIQUE: Noncontrast 3 mm thick sections acquired from the skull base to the T4 level. Sagittal and coronal reformats were then constructed. For radiation dose reduction, the following was used: automated exposure control, adjustment of mA and/or kV according to patient size. COMPARISON: None. FINDINGS: Image quality: Excellent. Bones: No fractures or dislocations. Visualized superior ribs are intact. Small C7 cervical ribs. Soft tissues: Prevertebral soft tissues are normal in thickness. No paravertebral hematomas. No apical pneumothoraces. IMPRESSION: No acute fracture or subluxation. Agree with preliminary report. Dictated by: Timbo Farley D.O. on 09/07/2020 at 8:13 Approved by: Timbo Farley D.O. on 09/07/2020 at 8:16
--- NOTE | 2020-09-07 04:15 | DI.CT.S_ITS ---
PROCEDURE: CT HEAD/BRAIN WO CON INDICATIONS: fall with head injury, change in LOC TECHNIQUE: Noncontrast 4.5 mm thick angled axial sections acquired from the foramen magnum to the vertex, with coronal and sagittal reformats. For radiation dose reduction, the following was used: automated exposure control, adjustment of mA and/or kV according to patient size. COMPARISON: None. FINDINGS: Image quality: Streak artifact at the skull base. CSF spaces: Basal cisterns are patent. No extra-axial fluid collections. Ventricles are normal in size and shape. Brain: No midline shift. No intracranial masses or hemorrhage. Sanchez-white matter interface is normal. Skull and face: Calvarium and visualized facial bones are intact, without suspicious lesions. Sinuses: Visualized sinuses and mastoids are clear. IMPRESSION: No acute intracranial abnormality. Dictated by: Timbo Farley D.O. on 09/07/2020 at 8:08 Approved by: Timbo Farley D.O. on 09/07/2020 at 8:10
--- NOTE | 2020-09-07 04:15 | DI.CT.S_ITS ---
PROCEDURE: CT CHEST ABD PEL W CON INDICATIONS: trauma TECHNIQUE: After the administration of intravenous contrast, 5 mm thick sections acquired from the lung apices to the symphysis. 2.5 mm thick coronal and sagittal reformats were acquired. Additional 7 mm thick coronal maximum intensity projection (MIP) reformats acquired through the lungs. Optional 10-minute delayed imaging may be performed from the kidneys to the bladder. For radiation dose reduction, the following was used: automated exposure control, adjustment of mA and/or kV according to patient size. COMPARISON: None. FINDINGS: Image quality: Excellent. CHEST: Lungs: No pulmonary contusions or lacerations. No acute airspace opacities. No pneumothorax or hemothorax. Central and peripheral airways appear patent and normal in caliber. Mediastinum: No mediastinal hematomas. Heart size is normal. No pericardial effusion. Thoracic aorta and pulmonary arteries demonstrate normal size and enhancement. No mediastinal or hilar adenopathy. Esophagus is normal in caliber. No hiatal hernia. Chest wall: No rib fractures. No subcutaneous emphysema. No axillary or supraclavicular adenopathy. Thyroid gland is unremarkable. ABDOMEN: Solid organs: Liver demonstrates focal geographic hypoattenuation adjacent to the false form ligament in left portal vein consistent with focal fatty infiltration. No evidence. Gallbladder is unremarkable Biliary system is non-dilated. Pancreas enhances normally, without transection. Spleen is normal in size and enhancement, without lacerations. No adrenal hematomas. Both kidneys enhance normally, without hydronephrosis or lacerations. Peritoneum and bowel: No free fluid or air. Unenhanced bowel loops demonstrate normal wall thickness and caliber. Nodes and vessels: No retroperitoneal or mesenteric adenopathy. Aorta and inferior vena cava are normal in size and enhancement. Miscellaneous: No ventral hernias. PELVIS: Genitourinary: Bladder wall thickness is normal. Miscellaneous: No inguinal hernias or adenopathy. Bones: Pelvic ring and hip joints appear intact. No vertebral compression fractures. IMPRESSION: No acute traumatic injury within the chest, abdomen, or pelvis. Agree with preliminary report. Dictated by: Timbo Farley D.O. on 09/07/2020 at 8:17 Approved by: Timbo Farley D.O. on 09/07/2020 at 8:24
[2020-09-07 04:19] VITALS: BP 141/88; PULSE 102; RESP 18; TEMP 36.8; O2SAT 95; BMI 28.0
[2020-09-07 04:30] LABS: Bacteria Urine Many (>30); Culture Indicated Urine Specimen Cultured; RBC Urine 30-100/HPF (0-5/HPF); Squamous Epithelial Cell Urine 0-1 /HPF (0-5/HPF); WBC Urine 1-5/HPF (0-5/HPF)
[2020-09-07 04:33] LABS: UR Morphine/Opiate cutoff 300 Negative (Negative); Ur Creatinine Normal (Normal); Ur Specific Gravity Normal (Normal); Urine Amphetamines Negative (Negative); Urine Barbiturates Negative (Negative); Urine Benzodiazepines Negative (Negative); Urine Cocaine Negative (Negative); Urine MDMA Negative (Negative); Urine Methadone Negative (Negative); Urine Methamphetamines Negative (Negative); Urine Oxycodone Negative (Negative); Urine Phencyclidine Negative (Negative); Urine Tetrahydrocannabinol Negative (Negative); Urine Tricyclic Antidepressant Negative (Negative); Urine pH Normal (Normal)
[2020-09-07 04:33] LABS: Add Manual Diff / Slide Review NO; Basophils Absolute Auto 0 /uL (0-100); Basophils Percent Auto 0.3 % (0-2); Eosinophils Absolute Auto 0 /uL (0-450); Eosinophils Percent Auto 0.4 % (2-4); Hematocrit 44.4 % (36-46); Hemoglobin 14.9 g/dL (12.0-16.0); Lymphocytes Absolute Auto 2800 /uL (1100-4500); Lymphocytes Percent Auto 22.2 % (25-40); Mean Corpuscular HGB Conc 33.5 % (30-36); Mean Corpuscular Hemoglobin 32.1 PG (26-34); Mean Corpuscular Volume 95.9 fL (80-100); Monocytes Absolute Auto 1000 /uL (0-900); Monocytes Percent Auto 8.2 % (3-14); Neutrophils Absolute Auto 8800 /uL (1500-7000); Neutrophils Percent Auto 68.9 % (50-75); Platelet Count 523 X10^3/uL (150-400); Red Blood Cell Count 4.63 X10^6/uL (4.0-5.2); Red Cell Distribution Width 14.1 % (11.6-14.8); White Blood Cell Count 12.7 X10^3/uL (4.5-11.0)
[2020-09-07 04:39] LABS: Alanine Aminotransferase 114 IU/L (<35); Albumin 4.7 g/dL (3.5-5.0); Albumin Globulin Ratio 1.3 (1.0-2.8); Alkaline Phosphatase 58 U/L (38-126); Aspartate Aminotransferase 246 IU/L (14-36); BUN Creatinine Ratio 15.3 (6-22); Bilirubin Total 0.3 mg/dL (0.2-1.3); Blood Urea Nitrogen 11 mg/dL (7-17); Calcium 8.7 mg/dL (8.4-10.2); Carbon Dioxide 24 mmol/L (22-32); Chloride 105 mmol/L (98-107); Estimated Glomerular Filt Rate > 60.0 mL/min (>60); Globulin 3.5 g/dL (1.7-4.1); Glucose 116 mg/dL (70-100); HEMOLYSIS < 15 (0-50); Lipase 339 U/L (23-300); Potassium 4.2 mmol/L (3.4-5.1); Sodium 143 mmol/L (137-145); Total Protein 8.2 g/dL (6.3-8.2)
[2020-09-07 04:51] LABS: Ethanol (ETOH) 493 mg/dL
[2020-09-07 05:29] VITALS: BP 128/85; PULSE 99; RESP 18; O2SAT 100
== END 2020-09-07 05:30 | disposition home or self-care (01) ==
PROVIDERS: Emergency Provider Emergency Medicine; PCP Advanced Practice Midwife
DX: S09.90XA Unspecified injury of head, initial encounter (principal); F10.129 Alcohol abuse with intoxication, unspecified; Y90.8 Blood alcohol level of 240 mg/100 ml or more; S00.33XA Contusion of nose, initial encounter; R31.9 Hematuria, unspecified; W19.XXXA Unspecified fall, initial encounter
CPT/HCPCS: 36415; 70450; 70486; 71260; 72125; 74177; 80053; 80305; 80320; 81003; 81015; 81025; 83690; 85025; 87077; 87086; 87186; 99285; Q9967

== ENCOUNTER 2020-09-11 22:22 | Emergency (ER) | payer OTHER, MEDICAID, SELFPAY ==
[2020-09-11 22:39] VITALS: BP 137/90; PULSE 122; RESP 20; TEMP 36.9; O2SAT 95; BMI 26.6
[2020-09-11 22:55] LABS: RBC Urine None Seen (0-5/HPF); WBC Urine None Seen (0-5/HPF)
[2020-09-11 23:09] LABS: Bacteria Urine Few (2-10); Culture Indicated Urine Cult Not Indicated; Squamous Epithelial Cell Urine 1-5 /HPF (0-5/HPF)
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
[2020-09-11] MEDS: IBUPROFEN 400 MG TABLET 800 MG PO (23:53)
[2020-09-12 00:32] VITALS: BP 117/72; PULSE 90; RESP 16; TEMP 36.8; O2SAT 98
== END 2020-09-12 00:30 | disposition home or self-care (01) ==
PROVIDERS: Emergency Provider Emergency Medicine; PCP Advanced Practice Midwife
DX: S31.41XA Laceration without foreign body of vagina and vulva, initial encounter (principal); W19.XXXA Unspecified fall, initial encounter; K59.00 Constipation, unspecified
CPT/HCPCS: 81003; 81015; 81025; 99281; 99282

== ENCOUNTER 2021-09-04 | Emergency (ER) | payer MEDICAID, OTHER, SELFPAY ==
[2021-09-04 00:05] VITALS: BP 107/63; PULSE 88; RESP 18; TEMP 36.8; O2SAT 98
--- NOTE | 2021-09-04 00:45 | PC.NURSE ---
She left with her Mother,she denied homicidal or any suicidal thoughts,Her Mom and her stated they called around to try to get into a dtox facility and were told to get medical clearance first,she declined our help and left with her Mother stating they would try calling again tomorrow,her Mom saidthis has been going on for years.
== END 2021-09-04 00:20 | disposition left against medical advice (07) ==
PROVIDERS: Emergency Provider Emergency Medicine; PCP Advanced Practice Midwife
DX: F10.10 Alcohol abuse, uncomplicated (principal)
CPT/HCPCS: 99281

== ENCOUNTER 2022-01-24 23:51 | Emergency (ER) | payer OTHER, MEDICAID, SELFPAY | END 2022-01-25 00:07 | disposition left against medical advice (07) | PROVIDERS: Emergency Provider Emergency Medicine; PCP Advanced Practice Midwife ==

== ENCOUNTER 2023-06-28 21:37 | Emergency (ER) | payer OTHER, MEDICAID, SELFPAY ==
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
--- NOTE | 2023-06-28 21:46 | DI.RAD.S_ITS ---
PROCEDURE: XR FOOT LT MIN 3V INDICATIONS: midfoot pain for 1 month TECHNIQUE: 3 views of the foot were acquired. COMPARISON: None. FINDINGS: Bones: No fractures or dislocations. No suspicious bony lesions. Soft tissues: No tibiotalar joint effusion. Achilles tendon appears normal. No radiopaque foreign body. IMPRESSION: No acute bony abnormality. Dictated by: Chu Lu M.D. on 06/29/2023 at 1:04 Approved by: Chu Lu M.D. on 06/29/2023 at 1:05
[2023-06-28 21:51] VITALS: BP 120/74; PULSE 90; RESP 16; TEMP 36.3; O2SAT 96; BMI 28.8
[2023-06-28 22:01] VITALS: PULSE 88; O2SAT 95
[2023-06-28] MEDS: IBUPROFEN 400 MG TABLET PO (22:07)
[2023-06-28] MEDS: ACETAMINOPHEN 325 MG TABLET PO (22:08)
== END 2023-06-28 22:40 | disposition home or self-care (01) ==
PROVIDERS: Emergency Provider Emergency Medicine; PCP Advanced Practice Midwife
DX: M79.672 Pain in left foot (principal); G89.29 Other chronic pain
CPT/HCPCS: 73630; 99283

== ENCOUNTER 2024-03-09 06:04 | Emergency (ER) | payer OTHER, MEDICAID, SELFPAY ==
[2024-03-09] VITALS (9 sets, daily range): BP systolic 105–122; BP diastolic 62–76; PULSE 111–127; RESP 12–23; TEMP 36.8; O2SAT 95–99; BMI 27.4
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
[2024-03-09 07:17] LABS: Add Manual Diff / Slide Review NO; Basophils Absolute Auto 0 /uL (0-100); Basophils Percent Auto 0.4 % (0-2); Eosinophils Absolute Auto 100 /uL (0-450); Eosinophils Percent Auto 0.8 % (2-4); Hematocrit 41.5 % (36-46); Lymphocytes Absolute Auto 2900 /uL (1100-4500); Lymphocytes Percent Auto 34.6 % (25-40); Mean Corpuscular HGB Conc 33.7 % (30-36); Mean Corpuscular Hemoglobin 31.4 PG (26-34); Mean Corpuscular Volume 93.1 fL (80-100); Monocytes Absolute Auto 600 /uL (0-900); Monocytes Percent Auto 6.9 % (3-14); Neutrophils Absolute Auto 4800 /uL (1500-7000); Neutrophils Percent Auto 57.3 % (50-75); Platelet Count 431 X10^3/uL (150-400); Red Blood Cell Count 4.46 X10^6/uL (4.0-5.2); Red Cell Distribution Width 14.3 % (11.6-14.8); White Blood Cell Count 8.3 X10^3/uL (4.5-11.0)
[2024-03-09 07:19] LABS: INR 0.8 (0.9-1.3); Prothrombin Time 9.5 SECONDS (9.4-12.5)
[2024-03-09 07:24] LABS: Alanine Aminotransferase 35 IU/L (<35); Albumin 4.1 g/dL (3.5-5.0); Albumin Globulin Ratio 1.5 (1.0-2.8); Alkaline Phosphatase 79 U/L (38-126); Aspartate Aminotransferase 47 IU/L (14-36); BUN Creatinine Ratio 17.6 (6-22); Bilirubin Total 0.3 mg/dL (0.2-1.3); Blood Urea Nitrogen 15 mg/dL (7-17); Calcium 8.3 mg/dL (8.4-10.2); Carbon Dioxide 23 mmol/L (22-32); Chloride 111 mmol/L (98-107); Estimated Glomerular Filt Rate > 60 mL/min (>60); Globulin 2.7 g/dL (1.7-4.1); Glucose 121 mg/dL (70-100); HEMOLYSIS 18 (0-50); Lactate (Lactic Acid) 1.8 mmol/L (0.7-2.1); Lipase 210 U/L (23-300); Sodium 142 mmol/L (137-145); Total Protein 6.8 g/dL (6.3-8.2)
[2024-03-09] MEDS: KETOROLAC 30 MG/ML VIAL 15 MG IV (07:29)
[2024-03-09] MEDS: SODIUM CHLORIDE 0.9% 1,000 ML 1000 ML IV (07:29)
[2024-03-09 07:40] LABS: HCG Quantitative /Beta subunit < 2.39 mIU/mL
[2024-03-09 07:48] LABS: Ethanol (ETOH) 259 mg/dL
[2024-03-09 07:56] LABS: Ur Creatinine Normal (Normal); Ur Specific Gravity Normal (Normal); Urine Amphetamines Negative (Negative); Urine Barbiturates Negative (Negative); Urine Benzodiazepines Negative (Negative); Urine Cocaine Negative (Negative); Urine MDMA Negative (Negative); Urine Methadone Negative (Negative); Urine Methamphetamines Positive (Negative); Urine Opiates Negative (Negative); Urine Oxycodone Negative (Negative); Urine Phencyclidine Negative (Negative); Urine THC Negative (Negative); Urine Tricyclic Antidepressant Negative (Negative); Urine pH Normal (Normal)
[2024-03-09 08:02] LABS: Ictotest Urine Negative (Negative)
[2024-03-09 08:06] LABS: Bacteria Urine Few (2-10); Culture Indicated Urine Cult Not Indicated; Hyaline Casts Urine 1-5/LPF; Mucus Urine 1+ (Negative); RBC Urine None Seen (0-5/HPF); Squamous Epithelial Cell Urine 1-5 /HPF (0-5/HPF); Urine Volume 10mL (spun); WBC Urine 0-1/HPF (0-5/HPF)
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
== END 2024-03-09 09:18 | disposition home or self-care (01) ==
PROVIDERS: Emergency Medicine; Emergency Provider Emergency Medicine; PCP Advanced Practice Midwife
DX: K62.5 Hemorrhage of anus and rectum (principal); R10.30 Lower abdominal pain, unspecified; R00.0 Tachycardia, unspecified
CPT/HCPCS: 36415; 74177; 80053; 80305; 80320; 81003; 81015; 81025; 83605; 83690; 84702; 85025; 85610; 86850; 86900; 86901; 87086; 93005; 93010; 96361; 96374; 99284; J1885

== ENCOUNTER 2024-11-01 04:18 | Emergency (ER) | payer OTHER, SELFPAY ==
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
[2024-11-01 04:22] VITALS: PULSE 121; O2SAT 98
[2024-11-01 04:23] VITALS: BP 136/92; PULSE 122; O2SAT 100
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
[2024-11-01 04:28] VITALS: BP 136/92; PULSE 120; RESP 22; TEMP 36.2; O2SAT 100
[2024-11-01] MEDS: ACETAMINOPHEN 325 MG TABLET 650 MG PO (04:32)
[2024-11-01 05:40] VITALS: BP 100/65; PULSE 84; O2SAT 100
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
== END 2024-11-01 05:56 | disposition home or self-care (01) ==
PROVIDERS: Emergency Provider Student in an Organized Health Care Education/Training Program; PCP Advanced Practice Midwife
DX: S09.90XA Unspecified injury of head, initial encounter (principal); Y04.2XXA Assault by strike against or bumped into by another person, initial encounter
CPT/HCPCS: 70450; 72125; 81025; 99283; 99284